=== PATIENT | female | born 1970 | race Caucasian/White ===

== ENCOUNTER 2020-06-24 06:00 | Observation (INO) ==
[2020-06-24] MEDS ORDERED: ceFAZolin 1,000 MG VIAL IRRIG ONE (06:03)
[2020-06-24] MEDS ORDERED: DIAZEPAM 5 MG TABLET PO ONE (06:03)
[2020-06-24] MEDS ORDERED: FAMOTIDINE 20 MG/2 ML VIAL IV ONE (07:11)
[2020-06-24] MEDS: DEXTROSE 5% NACL 0.45% 1,000 ML IV SCH (07:12)
[2020-06-24] MEDS ORDERED: ceFAZolin 1,000 MG VIAL ONE (07:23)
[2020-06-24] MEDS ORDERED: LIDOCAINE 1%/EPI INJ 20 ML VIAL ONE (07:26)
[2020-06-24] MEDS ORDERED: HEPARIN/NACL 0.9% 2 UNITS/ML 500 ML IV ONE (07:27)
[2020-06-24] MEDS ORDERED: MIDAZOLAM 2 MG/2 ML VIAL ONE (09:40)
[2020-06-24] MEDS ORDERED: LIDOCAINE 2% 5 ML VIAL ONE (09:40)
[2020-06-24] MEDS ORDERED: propofoL 200 MG/20 ML VIAL IV ONE (09:40)
[2020-06-24] MEDS ORDERED: ETOMIDATE 40 MG/20 ML VIAL IV ONE (09:40)
[2020-06-24] MEDS ORDERED: ONDANSETRON 4 MG/2 ML VIAL ONE (09:40)
[2020-06-24] MEDS ORDERED: fentaNYL 100 MCG/2 ML VIAL ONE (09:40)
[2020-06-24] MEDS ORDERED: SODIUM CHLORIDE 0.9% 1,000 ML IV ONE (09:41)
[2020-06-24] MEDS ORDERED: KETAMINE 500 MG/10 ML VIAL ONE (09:41)
[2020-06-24] MEDS ORDERED: SODIUM CHLORIDE 0.9% 250 ML IV ONE (09:41)
[2020-06-24] MEDS ORDERED: diphenhydrAMINE CAP 25 MG CAPSULE PO PRN (16:56)
[2020-06-24] MEDS ORDERED: ZALEPLON 5 MG CAPSULE PO PRN (16:56)
[2020-06-24] MEDS ORDERED: LACTULOSE 20 GM/30 ML UDCUP PO PRN (16:56)
[2020-06-24] MEDS ORDERED: ACETAMINOPHEN 325 MG TABLET PO PRN (16:56)
[2020-06-24] MEDS ORDERED: ONDANSETRON 4 MG/2 ML VIAL IV PRN (16:56)
[2020-06-24] MEDS ORDERED: DOCUSATE SODIUM 100 MG CAPSULE PO PRN (16:56)
[2020-06-24] MEDS ORDERED: hydrALAZINE 20 MG/1 ML VIAL IV PRN (16:56)
[2020-06-24] MEDS ORDERED: guaiFENesin/DM ER 600-30 MG TABLET PO PRN (16:56)
[2020-06-24] MEDS ORDERED: PROMETHAZINE 25 MG TABLET PO PRN (16:56)
[2020-06-24] MEDS ORDERED: KETOROLAC 15 MG/1 ML VIAL IV PRN (16:57)
[2020-06-24] MEDS: SACUBITRIL/VALSARTAN 49-51 MG TABLET PO SCH (21:14)
[2020-06-25] MEDS: DEXTROSE 5% NACL 0.45% 1,000 ML IV SCH (05:56)
[2020-06-25 07:56] VITALS: BP 117/52
[2020-06-25 08:51] LABS: Calcium 8.6 MG/DL (8.5-10.1); Osmolality,Calculated 281.3 MOS/KG (273-304)
[2020-06-25] MEDS ORDERED: MULTIVITAMIN (CENTRUM) TABLET PO SCH (09:00)
[2020-06-25] MEDS ORDERED: ASPIRIN EC 81 MG TABLET PO SCH (09:00)
[2020-06-25] MEDS ORDERED: FUROSEMIDE 40 MG TABLET PO SCH (09:00)
[2020-06-25] MEDS ORDERED: METOPROLOL SUCCINATE XL 100 MG TABLET PO SCH (09:00)
[2020-06-25] MEDS ORDERED: PANTOPRAZOLE 40 MG TABLET PO SCH (09:00)
[2020-06-25] MEDS: SACUBITRIL/VALSARTAN 49-51 MG TABLET PO SCH (09:20)
[2020-06-25 10:37] LABS: Basophils # 0.1 10*3/uL (0.0-0.2); Basophils % 0.5 % (0.0-0.8); Eosinophils # 0.3 10*3/uL (0.0-0.87); Eosinophils % 2.9 % (0.00-10.9); Hematocrit 37.3 VOL% (35.7-47.0); Hemoglobin 12.3 GM/DL (12.0-16.0); Immature Granulocytes % 0.2 %; Immature Granulocytes Absolute 0.02 #; Lymphocytes # 2.6 10*3/uL (1.4-4.0); Lymphocytes % 28.1 % (21.3-54.2); Mean Corpuscular Volume 91.2 FL (87-102); Mean Platelet Volume 10.6 FL (9.6-12.0); Neutrophils % 59.3 % (38.7-73.9); Platelet Count 263 T/CUMM (130-400); Red Blood Count 4.09 MC/CUMM (3.8-5.5); Red Cell Distribution Width 13.8 % (9.3-17.3); White Blood Count 9.1 T/CUMM (4-12)
== END 2020-06-25 12:04 | disposition home or self-care (01) ==
LOC: N.TELEN 06:00 → N.CL 06:00 → N.TELEN 13:20
PROVIDERS: ADMIT Internal Medicine Interventional Cardiology; ATTEND Internal Medicine Interventional Cardiology